=== PATIENT | male | born 1960 ===

== ENCOUNTER 2017-09-13 09:34 | Inpatient (IN) | payer MEDICARE, OTHER ==
[2017-09-13 09:34] VITALS: BMI 27.3
[2017-09-13 10:10] LABS: URINE BILIRUBIN NEGATIVE (NEGATIVE); URINE BLOOD 1+ (NEGATIVE); URINE CLARITY Clear (Clear); URINE COLOR Yellow (YELLOW); URINE GLUCOSE (UA) NORMAL (Normal); URINE LEUKOCYTE ESTERASE NEG Leu/uL (Negative); URINE NITRATE NEGATIVE (NEGATIVE); URINE PROTEIN NEGATIVE (NEGATIVE); URINE UROBILINOGEN NORMAL mg/dL (0.2-1.0)
--- NOTE | 2017-09-13 10:10 | C.PDOC ---
History Of Present Illness 57-year-old male, brought in by EMS stating he is suicidal. He has a plan to shoot himself, and is hearing voices that are telling him to kill himself. All other Hx is limited due to clinical condition. Time Seen by Provider: 09/13/17 09:40 Chief Complaint (Nursing): Psychiatric Evaluation History Per: Patient History/Exam Limitations: clinical condition Past Medical History Reviewed: Historical Data, Nursing Documentation, Vital Signs Vital Signs: Last Vital Signs Temp 98.4 F 09/13/17 16:23 Pulse 102 H 09/13/17 16:23 Resp 20 09/13/17 16:23 BP 117/56 L 09/13/17 16:23 Pulse Ox 94 L 09/13/17 16:23 - Medical History PMH: Anxiety, Depression, Seizures Surgical History: Appendectomy, Cholecystectomy - [facility] Procedures ALCOHOL DETOXIFICATION (01/11/15) GROUP PSYCHOTHERAPY (07/12/15) INDIVID PSYCHOTHERAP NEC (03/05/15) INDIVIDUAL PSYCHOTHERAPY, BEHAVIORAL (07/12/15) OTHER GROUP THERAPY (03/05/15) PSYCHIAT DRUG THERAP NEC (03/05/15) SUPPOR VERBAL PSYCHOTHER (01/11/15) Family History: States: No Known Family Hx - Social History Hx Tobacco Use: No Hx Alcohol Use: Yes Hx Substance Use: No - Immunization History Hx Tetanus Toxoid Vaccination: No Hx Influenza Vaccination: No Hx Pneumococcal Vaccination: No Review Of Systems Constitutional: Negative for: Fever Respiratory: Negative for: Shortness of Breath Psych: Positive for: Depression, Suicidal ideation, Other (auditory hallucinations) Physical Exam - Physical Exam Appears: Non-toxic, No Acute Distress, Other (Screaming and crying actively in ER.) Skin: Warm, Dry, No Rash Head: Atraumatic, Normacephalic Eye(s): bilateral: Normal Inspection, PERRL, EOMI Oral Mucosa: Moist Neck: Normal ROM, Supple Chest: Symmetrical, No Tenderness Cardiovascular: Rhythm Regular, No Friction Rub, No Murmur Respiratory: No Accessory Muscle Use Gastrointestinal/Abdominal: Normal Exam, Soft, No Tenderness Back: Normal Inspection, No CVA Tenderness Extremity: Normal ROM Neurological/Psych: Oriented x3, Normal Speech, Normal Motor Gait: Steady ED Course And Treatment - Laboratory Results Result Diagrams: 09/13/17 10:36 09/13/17 10:36 O2 Sat by Pulse Oximetry: 99 (on RA) Pulse Ox Interpretation: Normal Medical Decision Making Medical Decision Making: The patient was observed for sobreity. Patient was evaluated by the crisis team and case was discussed with psychiatrist . Patient is to be admitted to psych. Disposition - Disposition Disposition: HOSPITALIZED Disposition Time: 17:30 Condition: FAIR - POA Present On Arrival: None - Clinical Impression Clinical Impression: Major depression - Scribe Statement The provider has reviewed the documentation as recorded by the Scribe (Rossy Mendez) All medical record entries made by the Scribe were at my direction and personally dictated by me. I have reviewed the chart and agree that the record accurately reflects my personal performance of the history, physical exam, medical decision making, and the department course for this patient. I have also personally directed, reviewed, and agree with the discharge instructions and disposition.
[2017-09-13 10:18] LABS: BARBITURATES, UR NEGATIVE (NEGATIVE); BENZODIAZEPINES, UR NEGATIVE (NEGATIVE); OPIATES, UR NEGATIVE (NEGATIVE); PHENCYCLIDINE, UR NEGATIVE (NEGATIVE)
[2017-09-13 10:43] LABS: BASO # 0.1 K/uL (0.0-0.2); EOS # 0.1 K/uL (0.0-0.7); EOS % 2.4 % (0.0-4.0); LYMPH # 2.6 K/uL (1.0-4.3); LYMPH % 43.5 % (20.0-40.0); MEAN CELL VOLUME 93.5 fL (80.0-94.0); MEAN CORPUSCULAR HEMOGLOBIN 32.8 pg (27.0-31.0); MEAN CORPUSCULAR HGB CONC 35.1 g/dL (33.0-37.0); MEAN PLATELET VOLUME 9.2 fL (7.2-11.7); MONO # 0.6 K/uL (0.0-0.8); MONO % 10.2 % (0.0-10.0); NEUT # 2.6 K/uL (1.8-7.0); NEUT % 42.9 % (50.0-75.0); NRBC % 0.1 % (0.0-2.0); RBC 4.57 Mil/uL (4.40-5.90); RED CELL DISTRIBUTION WIDTH 13.6 % (11.5-14.5); WHITE BLOOD COUNT 6.1 K/uL (4.8-10.8)
[2017-09-13 11:15] LABS: ALB/GLOB RATIO 1.3 (1.0-2.1); ALBUMIN 4.3 g/dL (3.5-5.0); ALT/SGPT 22 U/L (21-72); AST/SGOT 24 U/L (17-59); BLOOD UREA NITROGEN 18 mg/dL (9-20); CALCIUM 8.1 mg/dl (8.6-10.4); GFR AFRICAN-AMERICAN > 60; GFR NON-AFRICAN AMERICAN > 60
--- NOTE | 2017-09-13 17:45 | PCM.BM ---
<Kristin Galeas - Last Filed: 09/13/17 17:44> Treatment Plan Problems - Problems identified on initial assessmt Depression Date Initiated: 09/13/17 Time Initiated: 17:44 Assessment reference: NA Status: Active Comment: hx of ETOH abuse Treatment assets and liabiliti Patient Assests: cooperative, negotiates basic needs Patient Liabilities: substance abuse - Milieu Protocol Maintain good personal hygiene: daily Encourage regular showers, daily Remind patient to perform daily oral care Conduct patient checks and document Observation sheet: Q15 minutes Maintain personal safety: every shift Educate patient to report safety concerns to staff, every shift Monitor environment for contraband/sharps Medication safety: Monitor for expected outcome, potential side effects: every shift, Assess barriers to learning: every shift, Assess readiness for medication education: every shift <Chris Yarbrough - Last Filed: 09/16/17 20:10> - Diagnosis (1) Bipolar disorder, now depressed Status: Acute Interventions: 09/16/17 20:10 * Assess/adjust medications daily and /or as needed * See patient on an individual basis 7x/week to assess level of manic behaviors and stability * Discuss risks, benefits, side effects and alternatives of medications * * Assess/adjust medications daily and /or as needed * See patient on an individual basis 7x/week to assess symptoms of depression * Monitor for side effects & effectiveness of medications * (2) Alcohol use disorder, severe, dependence Status: Acute Interventions: 09/16/17 20:09 * Assess 7x/week regarding severity of withdrawal * Educate regarding risks, benefits, side effects and alternatives of medications * Use Motivational Interviewing for abstinence * Use CBT for relapse prevention * Medication management for withdrawal symptoms * Encourage medication assisted treatment *
[2017-09-14] MEDS: Multiple Vitamins Tab PO SCH (10:19)
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
[2017-09-15] MEDS: Multiple Vitamins Tab PO SCH (09:49)
[2017-09-15 09:58] LABS: CALCIUM 8.8 mg/dl (8.6-10.4); MAGNESIUM 1.8 mg/dL (1.6-2.3)
[2017-09-15] MEDS ORDERED: Ergocalciferol 50,000 Intl Units Cap PO SCH (15:15)
--- NOTE | 2017-09-15 15:15 | PCM.PYCHPN ---
Psychiatric Progress Note - Psychiatric Progress Note Patient seen today, length of contact: 17 min Patient Chief Complaint: "Better" Problems Identified/Issues Discussed: The pt is seen, chart reviewed, case discussed with staff. The pt is compliant with medications and reports no side-effects. Symptoms are improving but needs more time to stabilize. After care discussed, support and psychoeducation given. Medication Change: Yes Medical Record Reviewed: Yes Mental Status Examination - Cognitive Function Orientation: Person, Place, Situation, Time Memory: Intact Attention: Poor Concentration: Poor Association: Loose Fund of Knowledge: Poor - Mood Mood: Depressed, Anxious - Affect Affect: Constricted (odd) - Speech Speech: Appropriate - Formal Thought Process Formal Thought Process: No Impairment - Suicidal Ideation Suicidal Ideation: No - Homicidal Ideation Homicidal Ideation: No Goal/Treatment Plan - Goal/Treatment Plan Need for Continued Stay: Discharge may exacerbated symptoms, Severe functional impairment Progress Toward Problem(s) and Goals/Treatment Plan: Lexapro for depression Zyprexa for bipolar hx DC depakote (has alcohol depend.) Librium detox As needed medications Gabapentin for augmentation Attend groups and activities Supportive therapy and psychoeducation [place] for abstinence CBT for relapse prevention Encourage MAT Refer to rehab or IOP Attend self-help groups as well Estimated Date of D/C: 09/20/17
[2017-09-16] MEDS: Aluminum Hydroxide/Magnesium Hydroxide Susp (30 mL) PO PRN ×3 (03:21→21:21)
[2017-09-16] MEDS: Multiple Vitamins Tab PO SCH (09:54)
[2017-09-16] MEDS: Pantoprazole 20 mg EC Tab PO SCH (11:31)
--- NOTE | 2017-09-16 20:05 | PCM.PYCHPN ---
Psychiatric Progress Note - Psychiatric Progress Note Patient seen today, length of contact: 16 min Patient Chief Complaint: "I have stomach pain" Problems Identified/Issues Discussed: The pt is seen, chart reviewed, case discussed with staff. He is improving slowly but still sexually preoccupied, odd, labile and at times isolated. No SEs from meds Support and psychoed given Medical problems are vague and mild Medication Change: Yes (increase zyprexa) Medical Record Reviewed: Yes Mental Status Examination - Cognitive Function Orientation: Person, Place, Situation, Time Memory: Intact Attention: Poor Concentration: Poor Association: Loose Fund of Knowledge: Poor - Mood Mood: Depressed, Anxious - Affect Affect: Constricted (odd) - Speech Speech: Appropriate - Formal Thought Process Formal Thought Process: No Impairment - Suicidal Ideation Suicidal Ideation: No - Homicidal Ideation Homicidal Ideation: No Goal/Treatment Plan - Goal/Treatment Plan Need for Continued Stay: Discharge may exacerbated symptoms, Severe functional impairment Progress Toward Problem(s) and Goals/Treatment Plan: Lexapro for depression Zyprexa for bipolar hx DC'ed depakote (has alcohol depend.) Librium detox ending As needed medications Gabapentin for augmentation Attend groups and activities Supportive therapy and psychoeducation [place] for abstinence CBT for relapse prevention Encourage MAT Refer to rehab or IOP Attend self-help groups as well Estimated Date of D/C: 09/20/17
[2017-09-17] MEDS: Multiple Vitamins Tab PO SCH (10:10)
[2017-09-17] MEDS: Pantoprazole 20 mg EC Tab PO SCH (10:46)
--- NOTE | 2017-09-17 14:24 | PCM.PYCHPN ---
Psychiatric Progress Note - Psychiatric Progress Note Patient seen today, length of contact: 16 min Patient Chief Complaint: "I have diarrhea." Problems Identified/Issues Discussed: The pt is seen, chart reviewed, case discussed with staff. He is improving slowly but still sexually preoccupied, odd, labile and at times isolated. Patient complains of having diarrhea. No SEs from meds Support and psychoed given Medical problems are vague and mild Medication Change: Yes (increase zyprexa) Medical Record Reviewed: Yes Mental Status Examination - Cognitive Function Orientation: Person, Place, Situation, Time Memory: Intact Attention: WNL Concentration: Poor Association: Loose Fund of Knowledge: Poor - Mood Mood: Depressed, Anxious - Affect Affect: Constricted (odd) - Speech Speech: Appropriate - Formal Thought Process Formal Thought Process: No Impairment - Suicidal Ideation Suicidal Ideation: No - Homicidal Ideation Homicidal Ideation: No Goal/Treatment Plan - Goal/Treatment Plan Need for Continued Stay: Discharge may exacerbated symptoms, Severe functional impairment Progress Toward Problem(s) and Goals/Treatment Plan: Lexapro for depression Zyprexa for bipolar hx DC'ed depakote (has alcohol dependence.) Librium detox ending As needed medications Gabapentin for augmentation Attend groups and activities Supportive therapy and psychoeducation [place] for abstinence CBT for relapse prevention Encourage MAT Refer to rehab or IOP Attend self-help groups as well Estimated Date of D/C: 09/20/17
[2017-09-18] MEDS: Multiple Vitamins Tab PO SCH (09:47)
[2017-09-18] MEDS: Pantoprazole 20 mg EC Tab PO SCH (09:47)
--- NOTE | 2017-09-18 18:59 | PCM.PYCHPN ---
Psychiatric Progress Note - Psychiatric Progress Note Patient seen today, length of contact: 16 min Patient Chief Complaint: "I'm feeling OKay" Problems Identified/Issues Discussed: Patient was seen. Chart was reviewed important content noted. Nurse input received. Patient has no new complaints. Pt reported improvement in his etoh withdrawal symptoms. No events overnight. Patient slept well and is eating well. Patient reported that he still had depressive symptoms. However, he denies suicidal or homicidal ideations. Patient reports improvement in hallucinations. No delusions elicited. No paranoia elicited. Patient has remained in good clinical and behavioral control. Symptoms are improving, but needs more time to stabilize. Patient is finding medications beneficial and would like to continue with treatment plan. Patient appreciated that treatment team is trying to help. Medication Change: No Medical Record Reviewed: Yes Mental Status Examination - Cognitive Function Orientation: Person, Place, Situation, Time Memory: Intact Attention: WNL Concentration: WNL Association: WNL Fund of Knowledge: [facility] Decription of patient's judgement and insights: Fair/Fair Addtional comments: Calm and Cooperative - Mood Mood: Depressed, Anxious - Affect Affect: Constricted (odd) - Speech Speech: Appropriate - Formal Thought Process Formal Thought Process: No Impairment Psychotic Thoughts and Behaviors: Denied - Suicidal Ideation Suicidal Ideation: No Plan: denied - Homicidal Ideation Homicidal Ideation: No Plan: denied Goal/Treatment Plan - Goal/Treatment Plan Need for Continued Stay: Discharge may exacerbated symptoms, Severe functional impairment Progress Toward Problem(s) and Goals/Treatment Plan: Continue Lexapro for depression Zyprexa for bipolar hx DC'ed depakote (has alcohol dependence.) Librium detox ending As needed medications Gabapentin for augmentation Attend groups and activities Supportive therapy and psychoeducation [place] for abstinence CBT for relapse prevention Encourage MAT Refer to rehab or IOP Attend self-help groups as well Estimated Date of D/C: 09/20/17 - Smoking Cessation Smoking Cessation Initiated: Yes
[2017-09-19 05:51] VITALS: O2SAT 100
[2017-09-19] MEDS: Pantoprazole 20 mg EC Tab PO SCH (09:07)
[2017-09-19] MEDS: Multiple Vitamins Tab PO SCH (09:07)
--- NOTE | 2017-09-19 17:01 | PCM.PYCHPN ---
Psychiatric Progress Note - Psychiatric Progress Note Patient seen today, length of contact: 16 min Patient Chief Complaint: "I'm feeling better" Problems Identified/Issues Discussed: Patient was seen. Chart was reviewed important content noted. Nurse input received. Patient has no new complaints. Pt reported improvement in his etoh withdrawal symptoms. No events overnight. Patient slept well and is eating well. Patient reported that he still had depressive symptoms. However, he denies suicidal or homicidal ideations. Patient reports improvement in hallucinations. No delusions elicited. No paranoia elicited. Patient has remained in good clinical and behavioral control. Symptoms are improving, but needs more time to stabilize. Patient is finding medications beneficial and would like to continue with treatment plan. Patient appreciated that treatment team is trying to help. Medication Change: No Medical Record Reviewed: Yes Mental Status Examination - Cognitive Function Orientation: Person, Place, Situation, Time Memory: Intact Attention: WNL Concentration: WNL Association: WNL Fund of Knowledge: [facility] Decription of patient's judgement and insights: Fair/Fair - Mood Mood: Depressed, Anxious - Affect Affect: Constricted (odd) - Speech Speech: Appropriate - Formal Thought Process Formal Thought Process: No Impairment Psychotic Thoughts and Behaviors: Denied - Suicidal Ideation Suicidal Ideation: No Plan: denied - Homicidal Ideation Homicidal Ideation: No Plan: denied Goal/Treatment Plan - Goal/Treatment Plan Need for Continued Stay: Discharge may exacerbated symptoms, Severe functional impairment Progress Toward Problem(s) and Goals/Treatment Plan: Continue Lexapro for depression Zyprexa for bipolar hx DC'ed depakote (has alcohol dependence.) Librium detox ending As needed medications Gabapentin for augmentation Attend groups and activities Supportive therapy and psychoeducation [place] for abstinence CBT for relapse prevention Encourage MAT Refer to rehab or IOP Attend self-help groups as well Estimated Date of D/C: 09/20/17 - Smoking Cessation Smoking Cessation Initiated: Yes
[2017-09-20 09:00] VITALS: BP 123/88; PULSE 88; RESP 16; TEMP 97.9
[2017-09-20] MEDS: Multiple Vitamins Tab PO SCH (10:02)
[2017-09-20] MEDS: Pantoprazole 20 mg EC Tab PO SCH (10:02)
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
== END 2017-09-20 11:56 | disposition home or self-care (01) | DRG 895 ==
LOC: C.ER 09:34 → C.5E 17:01
PROVIDERS: ADMIT Psychiatry & Neurology Psychiatry; ATTEND Psychiatry & Neurology Psychiatry
PROC: HZ2ZZZZ Detoxification Services for Substance Abuse Treatment (ICD-10-PCS; principal; 2017-09-13)
PROC: HZ52ZZZ Individual Psychotherapy for Substance Abuse Treatment, Cognitive-Behavioral (ICD-10-PCS; 2017-09-13)
PROC: HZ59ZZZ Individual Psychotherapy for Substance Abuse Treatment, Supportive (ICD-10-PCS; 2017-09-13)
PROC: HZ56ZZZ Individual Psychotherapy for Substance Abuse Treatment, Psychoeducation (ICD-10-PCS; 2017-09-13)
DX: F10.239 Alcohol dependence with withdrawal, unspecified (principal); F31.81 Bipolar II disorder; F03.90 Unspecified dementia, unspecified severity, without behavioral disturbance, psychotic disturbance, mood disturbance, and anxiety; F60.9 Personality disorder, unspecified; F43.10 Post-traumatic stress disorder, unspecified; F41.0 Panic disorder [episodic paroxysmal anxiety]; G40.909 Epilepsy, unspecified, not intractable, without status epilepticus

== ENCOUNTER 2018-10-15 12:12 | Inpatient (IN) | payer OTHER ==
[2018-10-15 12:13] VITALS: BMI 32.8
[2018-10-15] MEDS ORDERED: Nitroglycerin 2% Ointment Foilpak UD TOP STA (12:24)
[2018-10-15] MEDS ORDERED: Aspirin 325 mg EC Tablets PO STA (12:24)
--- NOTE | 2018-10-15 12:26 | C.PDOC ---
History Of Present Illness 58 y/o male pt with hx of HTN, epilepsy and schizophrenia presents to the ER c/o chest pain x1 day. Associated sx includes cough for a couple of days. Pt reports he was bring his groceries up yesterday at 9 am when he developed an onset of mid-sternal chest pain and pressure. Pt denies fever, chills, SOB and palpitations. Time Seen by Provider: 10/15/18 12:15 Chief Complaint (Nursing): Chest Pain History Per: Patient History/Exam Limitations: no limitations Onset/Duration Of Symptoms: Days (x1) Current Symptoms Are (Timing): Still Present Past Medical History Reviewed: Historical Data, Nursing Documentation, Vital Signs Vital Signs: Last Vital Signs Temp 98.0 F 10/15/18 12:18 Pulse 86 10/15/18 12:18 Resp 20 10/15/18 12:18 BP 171/112 H 10/15/18 12:18 Pulse Ox 100 10/15/18 12:18 - Medical History PMH: Anxiety, Depression, HTN, Schizophrenia, Seizures Surgical History: Appendectomy, Cholecystectomy - [facility] Procedures ALCOHOL DETOXIFICATION (01/11/15) DETOXIFICATION SERVICES FOR SUBSTANCE ABUSE TREATMENT (09/13/17) DRAINAGE OF LEFT LOWER LEG SKIN, EXTERNAL APPROACH (05/26/18) GROUP PSYCHOTHERAPY (07/12/15) INDIV PSYCHOTHERAPY FOR SUBSTANCE ABUSE TREATMENT, SUPPORT (09/13/17) INDIV PSYCHOTHERAPY FOR SUBSTANCE ABUSE, COGNITIV BEHAVIORAL (09/13/17) INDIV PSYCHOTHERAPY FOR SUBSTANCE ABUSE, PSYCHOEDUCATION (09/13/17) INDIVID PSYCHOTHERAP NEC (03/05/15) INDIVIDUAL PSYCHOTHERAPY, BEHAVIORAL (07/12/15) OTHER GROUP THERAPY (03/05/15) PSYCHIAT DRUG THERAP NEC (03/05/15) SUPPOR VERBAL PSYCHOTHER (01/11/15) Family History: States: No Known Family Hx - Social History Hx Tobacco Use: No Hx Alcohol Use: Yes Hx Substance Use: No - Immunization History Hx Tetanus Toxoid Vaccination: No Hx Influenza Vaccination: No Hx Pneumococcal Vaccination: No Review Of Systems Except As Marked, All Systems Reviewed And Found Negative. Constitutional: Negative for: Fever, Chills Cardiovascular: Positive for: Chest Pain. Negative for: Palpitations Respiratory: Positive for: Cough. Negative for: Shortness of Breath Physical Exam - Physical Exam Appears: Non-toxic, No Acute Distress Skin: Warm, Dry Head: Normacephalic Eye(s): bilateral: Normal Inspection, EOMI Ear(s): Bilateral: Normal Nose: Normal Oral Mucosa: Moist Neck: Normal ROM, Supple Chest: Symmetrical, No Deformity, No Tenderness Cardiovascular: Rhythm Regular Respiratory: Normal Breath Sounds, No Rales, No Rhonchi, No Wheezing Gastrointestinal/Abdominal: Soft, No Tenderness Back: No CVA Tenderness Neurological/Psych: Oriented x3, Normal Speech ED Course And Treatment - Laboratory Results Result Diagrams: 10/15/18 12:30 10/15/18 12:30 ECG: Interpreted By Me, Viewed By Me ECG Rhythm: Sinus Rhythm (arrhythmia) Interpretation Of ECG: LVH with ST elevation in V2; no reciprocal changes Rate From EC O2 Sat by Pulse Oximetry: 100 (RA) Pulse Ox Interpretation: Normal - Radiology CXR: Interpreted by Me, Viewed By Me CXR Interpretation: Yes: Cardiomegaly (borderline ). No: Infiltrates, Pnemothorax Medical Decision Making Medical Decision Making: Plans: -- EKG -- Chem labs -- blood works -- CXR -- aspirin -- nitro-bid Progress/Update: 1:51pm : Spoke with Dr. Osei who agreed to admit the patient. Consult for Dr. Arriola Disposition Discussed With : Bhumi Osei Doctor Will See Patient In The: Hospital Counseled Patient/Family Regarding: Studies Performed, Diagnosis - Disposition Disposition: HOSPITALIZED Disposition Time: 14:03 Condition: STABLE - Clinical Impression Clinical Impression: Chest pain, Hypotension - Scribe Statement The provider has reviewed the documentation as recorded by the Nithya Henderson Do Provider Attestation: All medical record entries made by the Briandaibe were at my direction and personally dictated by me. I have reviewed the chart and agree that the record accurately reflects my personal performance of the history, physical exam, medical decision making, and the department course for this patient. I have also personally directed, reviewed, and agree with the discharge instructions and disposition.
[2018-10-15 12:34] LABS: BASO # 0.1 K/uL (0.0-0.2); BASO % 1.2 % (0.0-2.0); EOS # 0.2 K/uL (0.0-0.7); EOS % 2.6 % (0.0-4.0); HEMOGLOBIN 15.8 g/dL (12.0-18.0); LYMPH # 1.8 K/uL (1.0-4.3); LYMPH % 28.4 % (20.0-40.0); MEAN CELL VOLUME 92.8 fL (80.0-94.0); MEAN CORPUSCULAR HEMOGLOBIN 32.1 pg (27.0-31.0); MEAN CORPUSCULAR HGB CONC 34.5 g/dL (33.0-37.0); MEAN PLATELET VOLUME 9.7 fL (7.2-11.7); MONO # 0.6 K/uL (0.0-0.8); MONO % 9.3 % (0.0-10.0); NEUT # 3.7 K/uL (1.8-7.0); NEUT % 58.5 % (50.0-75.0); NRBC % 0.1 % (0.0-2.0); RBC 4.94 Mil/uL (4.40-5.90); RED CELL DISTRIBUTION WIDTH 13.6 % (11.5-14.5); WHITE BLOOD COUNT 6.3 K/uL (4.8-10.8)
[2018-10-15] MEDS ORDERED: Nitroglycerin 2% Ointment Foilpak UD TOP ONE (12:40)
[2018-10-15] MEDS ORDERED: Aspirin 325 mg EC Tablets PO ONE (12:40)
[2018-10-15 12:48] LABS: PROTHROMBIN TIME 10.5 SECONDS (9.7-12.2)
[2018-10-15 13:05] LABS: ALB/GLOB RATIO 1.5 (1.0-2.1); ALBUMIN 4.7 g/dL (3.5-5.0); ALT/SGPT 26 U/L (21-72); AST/SGOT 33 U/L (17-59); BLOOD UREA NITROGEN 18 mg/dL (9-20); CALCIUM 9.2 mg/dl (8.6-10.4); GFR NON-AFRICAN AMERICAN > 60
[2018-10-15 13:17] LABS: B-TYPE NATRIURETIC PEPTIDE 34.1 pg/mL (0-900)
[2018-10-15 13:40] LABS: BARBITURATES, UR NEGATIVE (NEGATIVE); BENZODIAZEPINES, UR NEGATIVE (NEGATIVE); OPIATES, UR NEGATIVE (NEGATIVE); PHENCYCLIDINE, UR NEGATIVE (NEGATIVE)
--- NOTE | 2018-10-15 13:54 | RAD ---
Date of service: 10/15/2018 HISTORY: chest pain COMPARISON: Portable chest 01/11/2015. FINDINGS: LUNGS: No active pulmonary disease. PLEURA: No significant pleural effusion identified, no pneumothorax apparent. CARDIOVASCULAR: No aortic atherosclerotic calcification present. Mild cardiomegaly no pulmonary vascular congestion. OSSEOUS STRUCTURES: No significant abnormalities. VISUALIZED UPPER ABDOMEN: Normal. OTHER FINDINGS: None. IMPRESSION: Stable mild cardiomegaly. No airspace disease bilaterally, pleural effusion or pneumothorax.
[2018-10-15 18:26] VITALS: RESP 20
[2018-10-15] MEDS: Enoxaparin 40 mg Syringe SC SCH (19:01)
[2018-10-15 20:05] LABS: CK-MB 1.87 ng/mL (0.0-3.38)
[2018-10-15] MEDS: Divalproex 125 mg Sprinkle Capsule PO SCH (21:28)
[2018-10-16 07:09] LABS: CK-MB 1.25 ng/mL (0.0-3.38)
[2018-10-16] MEDS: Enoxaparin 40 mg Syringe SC SCH (09:26)
--- NOTE | 2018-10-16 21:26 | CP.PCM.CON ---
History of Present Illness - History of Present Illness History of Present Illness: CC: Chest Pain 58 y/o male pt with hx of HTN, epilepsy and schizophrenia presents to the ER c/o chest pain x1 day. Associated sx includes cough for a couple of days. Pt reports he was bring his groceries up yesterday at 9 am when he developed an onset of mid-sternal chest pain and pressure. Pt denies fever, chills, SOB and palpitati ons. Chief Complaint (Nursing): Chest Pain History Per: Patient History/Exam Limitations: no limitations Onset/Duration Of Symptoms: Days (x1) Current Symptoms Are (Timing): Still Present Past Medical History Reviewed: Historical Data, Nursing Documentation, Vital Signs Vital Signs: Last Vital Signs Temp 98.0 F 10/15/18 12:18 Pulse 86 10/15/18 12:18 Resp 20 10/15/18 12:18 BP 171/112 H 10/15/18 12:18 Pulse Ox 100 10/15/18 12:18 - Medical History PMH: Anxiety, Depression, HTN, Schizophrenia, Seizures Surgical History: Appendectomy, Cholecystectomy - [facility] Procedures ALCOHOL DETOXIFICATION (01/11/15) DETOXIFICATION SERVICES FOR SUBSTANCE ABUSE TREATMENT (09/13/17) DRAINAGE OF LEFT LOWER LEG SKIN, EXTERNAL APPROACH (05/26/18) GROUP PSYCHOTHERAPY (07/12/15) INDIV PSYCHOTHERAPY FOR SUBSTANCE ABUSE TREATMENT, SUPPORT (09/13/17) INDIV PSYCHOTHERAPY FOR SUBSTANCE ABUSE, COGNITIV BEHAVIORAL (09/13/17) INDIV PSYCHOTHERAPY FOR SUBSTANCE ABUSE, PSYCHOEDUCATION (09/13/17) INDIVID PSYCHOTHERAP NEC (03/05/15) INDIVIDUAL PSYCHOTHERAPY, BEHAVIORAL (07/12/15) OTHER GROUP THERAPY (03/05/15) PSYCHIAT DRUG THERAP NEC (03/05/15) SUPPOR VERBAL PSYCHOTHER (01/11/15) Family History: States: No Known Family Hx - Social History Hx Tobacco Use: No Hx Alcohol Use: Yes Hx Substance Use: No - Immunization History Hx Tetanus Toxoid Vaccination: No Hx Influenza Vaccination: No Hx Pneumococcal Vaccination: No Review Of Systems Except As Marked, All Systems Reviewed And Found Negative. Constitutional: Negative for: Fever, Chills Cardiovascular: Positive for: Chest Pain. Negative for: Palpitations Respiratory: Positive for: Cough. Negative for: Shortness of Breath Physical Exam - Physical Exam Appears: Non-toxic, No Acute Distress Skin: Warm, Dry Head: Normacephalic Eye(s): bilateral: Normal Inspection, EOMI Ear(s): Bilateral: Normal Nose: Normal Oral Mucosa: Moist Neck: Normal ROM, Supple Chest: Symmetrical, No Deformity, No Tenderness Cardiovascular: Rhythm Regular Respiratory: Normal Breath Sounds, No Rales, No Rhonchi, No Wheezing Gastrointestinal/Abdominal: Soft, No Tenderness Back: No CVA Tenderness Neurological/Psych: Oriented x3, Normal Speech Past Patient History - Past Medical History & Family History Past Medical History?: Yes - Past Social History Smoking Status: Former Smoker - CARDIAC Hx Hypertension: Yes - PULMONARY Hx Tuberculosis: No - NEUROLOGICAL Hx Seizures: Yes - HEENT Hx HEENT Problems: No - RENAL Hx Chronic Kidney Disease: No - ENDOCRINE/METABOLIC Hx Endocrine Disorders: Yes - HEMATOLOGICAL/ONCOLOGICAL Hx Blood Disorders: No Hx Cancer: No - INTEGUMENTARY Hx Dermatological Problems: No - MUSCULOSKELETAL/RHEUMATOLOGICAL Hx Musculoskeletal Disorders: No Hx Falls: No - GASTROINTESTINAL Hx Gastrointestinal Disorders: No - GENITOURINARY/GYNECOLOGICAL Hx Genitourinary Disorders: No - PSYCHIATRIC Hx Anxiety: Yes Hx Depression: Yes Hx Schizophrenia: Yes Hx Substance Use: No - SURGICAL HISTORY Hx Appendectomy: Yes Hx Cholecystectomy: Yes - ANESTHESIA Hx Anesthesia: Yes Hx Anesthesia Reactions: No Hx Malignant Hyperthermia: No Meds Allergies/Adverse Reactions: Allergies Allergy/AdvReac Type Severity Reaction Status Date / Time paroxetine HCl [From Paxil] Allergy dyskinesia Verified 10/15/18 12:23 like phenytoin sodium Allergy SWELLING Verified 10/15/18 12:23 [From Dilantin] phenytoin sodium extended Allergy SWELLING Verified 10/15/18 12:23 [From Dilantin] haloperidol [From Haldol] AdvReac SWELLING Verified 10/15/18 12:23 - Medications Medications: Current Medications Divalproex Sodium (Depakote Sprinkles) 125 mg PO HS [facility] Last Admin: 10/15/18 21:28 Dose: 125 mg Enoxaparin Sodium (Lovenox) 40 mg SC DAILY [facility] Last Admin: 10/16/18 09:26 Dose: 40 mg Escitalopram Oxalate (Lexapro) 10 mg PO DAILY [facility] Last Admin: 10/16/18 09:26 Dose: 10 mg Levetiracetam (Keppra) 1,000 mg PO BID [facility] Last Admin: 10/16/18 18:17 Dose: 1,000 mg Olanzapine (Zyprexa) 5 mg PO HS [facility] Last Admin: 10/15/18 21:27 Dose: 5 mg Zolpidem Tartrate (Ambien) 5 mg PO HS PRN PRN Reason: Insomnia Last Admin: 10/16/18 00:13 Dose: 5 mg Results - Vital Signs Recent Vital Signs: Last Vital Signs Temp 97.9 F 10/16/18 16:00 Pulse 73 10/16/18 18:00 Resp 20 10/16/18 16:00 BP 110/68 10/16/18 16:00 Pulse Ox 95 10/16/18 16:00 - Labs Result Diagrams: 10/15/18 12:30 10/15/18 12:30 Labs: Laboratory Results - last 24 hr 10/16/18 10/16/18 10/16/18 06:42 06:42 12:17 POC Glucose (mg/dL) 94 Total Creatine Kinase 131 CK-MB (Mass) 1.25 Troponin I < 0.0120 Valproic Acid 10.6 L Assessment & Plan - Assessment and Plan (Free Text) Assessment: Chest Pain Stress test and ECHO in am
[2018-10-16] MEDS: Divalproex 125 mg Sprinkle Capsule PO SCH (21:53)
--- NOTE | 2018-10-17 05:53 | HP ---
The patient seen and examined on the bedside on 10/16/2018. CHIEF COMPLAINT: Chest pain. HISTORY OF PRESENT ILLNESS: Mr. Gasper Gonzalez is a 58-year-old male with past medical history of hypertension, epilepsy, schizophrenia, came to the emergency department complaining of chest pain one day associated with cough for a couple of days. The patient reports that he was brining his groceries when he developed an onset of midsternal chest pain and pressure. Denies fever or chills. No palpitation. No hematuria. No hematochezia. According to him, his seizures and schizophrenia are stable. PAST MEDICAL HISTORY: Anxiety, depression, hypertension, schizophrenia, and seizures. PAST SURGICAL HISTORY: Appendectomy, cholecystectomy. FAMILY HISTORY: Father and mother are noncontributory. HABITS: No smoking. Alcohol, yes. No substance abuse. REVIEW OF SYSTEMS: The patient was seen and examined at the bedside in his room. Looking comfortable. Still complaining about chest pain. No hematuria or hematochezia. No headache or dizziness. No coughing. No shortness of breath that moment. PHYSICAL EXAMINATION VITAL SIGNS: Temperature 98, pulse 86, respiratory rate 20, blood pressure 170/112, pulse oximetry 100%. Repeat blood pressure is 110/58. HEENT: Head normocephalic, atraumatic. Eyes PERRLA. Extraocular muscles intact. Conjunctivae clear. Nose patent. Mucous membranes are moist. NECK: Supple. No carotid bruit, JVD, or thyromegaly. CHEST: Bilaterally symmetrical. HEART: S1, S2 positive. LUNGS: Clear to auscultation. ABDOMEN: Soft. Bowel sounds present. No organomegaly. EXTREMITIES: No edema. No cyanosis. NEUROLOGIC: The patient is awake, alert. Follows simple commands. LABORATORY DATA: White blood cell 6.3, hemoglobin 15.8, hematocrit 45.9, platelets 235. Sodium 137, potassium 4, BUN 8, creatinine 0.9, glucose 77. Troponin x3 less than 0.0120. ASSESSMENT AND PLAN: Mr. Gasper Gonzalez is a 58-year-old male came with chest pain, has history of anxiety, depression, hypertension, schizophrenia, seizures, appendectomy, cholecystectomy but according to him, when he was getting grocery he had midsternal chest pain with pressure. We admitted the patient. Consult with sanitation director with Dr. Ghanshyam Arriola. According to Dr. Arriola, stress test and echocardiogram in a.m. Repeat labs, out of bed physical therapy. Gastrointestinal, deep venous thrombosis prophylaxis. According to the patient, he has insomnia, wants Ambien. He was taking Ambien at home. We will give that. Continue home medications and Depakote, Keppra, Lexapro. Lovenox for deep venous thrombosis prophylaxis given. The patient is getting his Zyprexa also. We will call Psychology consult. Repeat labs. We will follow up. Bhumi Osei MD
[2018-10-17] MEDS ORDERED: Caffeine Citrated **INJ** 20 MG/ML IV ONE (08:13)
--- NOTE | 2018-10-17 09:21 | CARD ---
APPROVED REPORT Date of service: 10/15/2018 EKG Measurement Heart [id number] <Conclusion> Normal sinus rhythm with sinus arrhythmia Moderate voltage criteria for LVH, may be normal variant Borderline ECG
[2018-10-17] MEDS: Enoxaparin 40 mg Syringe SC SCH (10:41)
[2018-10-17 11:28] LABS: BASO % 0.8 % (0.0-2.0); EOS # 0.1 K/uL (0.0-0.7); EOS % 1.8 % (0.0-4.0); LYMPH # 1.6 K/uL (1.0-4.3); LYMPH % 27.8 % (20.0-40.0); MEAN CELL VOLUME 92.8 fL (80.0-94.0); MEAN CORPUSCULAR HEMOGLOBIN 32.1 pg (27.0-31.0); MEAN CORPUSCULAR HGB CONC 34.6 g/dL (33.0-37.0); MEAN PLATELET VOLUME 9.5 fL (7.2-11.7); MONO # 0.6 K/uL (0.0-0.8); MONO % 9.4 % (0.0-10.0); NEUT # 3.6 K/uL (1.8-7.0); NEUT % 60.2 % (50.0-75.0); RBC 4.98 Mil/uL (4.40-5.90); RED CELL DISTRIBUTION WIDTH 13.9 % (11.5-14.5); WHITE BLOOD COUNT 5.9 K/uL (4.8-10.8)
[2018-10-17 11:56] LABS: ALB/GLOB RATIO 1.4 (1.0-2.1); ALBUMIN 4.2 g/dL (3.5-5.0); ALT/SGPT 19 U/L (21-72); AST/SGOT 24 U/L (17-59); BLOOD UREA NITROGEN 21 mg/dL (9-20); GFR NON-AFRICAN AMERICAN > 60
--- NOTE | 2018-10-17 13:30 | CP.PCM.PCO ---
Physician Communication Note - Physician Communication Note Physician Communication Note: see above
--- NOTE | 2018-10-17 18:20 | CP.PCM.PN ---
<Neha Cedeño - Last Filed: 10/17/18 18:15> Subjective - Date & Time of Evaluation Date of Evaluation: 10/17/18 Time of Evaluation: 08:00 - Subjective Subjective: Cardiology Progress Note for Dr. Arriola: Patient was seen and examined at bedside in the AM. Patient states his chest pain has improved significantly. He states when he arrived to the hospital it was over a 10/10 and not it is currently a 6/10. Patient currently denies SOB, palpitations, fever, chill, cough, nausea, vomiting, diarrhea, or constipation. Objective - Vital Signs/Intake and Output Vital Signs (last 24 hours): Temp Pulse Resp BP Pulse Ox 97.8 F 70 20 94/62 L 97 10/17/18 16:00 10/17/18 16:00 10/17/18 16:00 10/17/18 16:00 10/17/18 16:00 Intake and Output: 10/17/18 10/17/18 06:59 18:59 Intake Total 500 600 Balance 500 600 - Medications Medications: Current Medications Enoxaparin Sodium (Lovenox) 40 mg SC DAILY [facility] Last Admin: 10/17/18 10:41 Dose: 40 mg Escitalopram Oxalate (Lexapro) 10 mg PO DAILY [facility] Last Admin: 10/17/18 10:42 Dose: 10 mg Levetiracetam (Keppra) 1,000 mg PO BID [facility] Last Admin: 10/17/18 17:55 Dose: 1,000 mg Olanzapine (Zyprexa) 5 mg PO HS [facility] Last Admin: 10/16/18 21:53 Dose: 5 mg Zolpidem Tartrate (Ambien) 5 mg PO HS PRN PRN Reason: Insomnia Last Admin: 10/16/18 00:13 Dose: 5 mg - Labs Labs: 10/17/18 11:20 10/17/18 11:20 PT 10.5 SECONDS (9.7-12.2) 10/15/18 12:30 INR 1.0 10/15/18 12:30 APTT 30 SECONDS (21-34) 10/15/18 12:30 - Constitutional Appears: Well, Non-toxic, No Acute Distress - Head Exam Head Exam: ATRAUMATIC, NORMAL INSPECTION - Eye Exam Eye Exam: EOMI, Normal appearance - ENT Exam ENT Exam: Mucous Membranes Moist - Respiratory Exam Respiratory Exam: Clear to Ausculation Bilateral, NORMAL BREATHING PATTERN - Cardiovascular Exam Cardiovascular Exam: REGULAR RHYTHM, +S1, +S2 Additional comments: Tenderness to palpation of the chest - GI/Abdominal Exam GI & Abdominal Exam: Soft, Normal Bowel Sounds. absent: Tenderness - Extremities Exam Extremities Exam: Normal Inspection. absent: Pedal Edema, Tenderness - Neurological Exam Neurological Exam: Alert, Awake, Oriented x3 - Psychiatric Exam Psychiatric exam: Normal Affect - Skin Skin Exam: Normal Color Assessment and Plan - Assessment and Plan (Free Text) Assessment: Chest Pain - Most likely secondary to musculoskeletal - Trop negative x3 - ProBNP 34.1 - UDS: Negative - Stress Test: No stress induced ischemia. EF 72% No further cardiac workup at this time. Case discussed with Dr. Flako Cedeño PGY-2 <Ghanshyam Arriola - Last Filed: 10/17/18 23:29> Objective - Vital Signs/Intake and Output Vital Signs (last 24 hours): Temp Pulse Resp BP Pulse Ox 97.8 F 70 20 94/62 L 97 10/17/18 16:00 10/17/18 16:00 10/17/18 16:00 10/17/18 16:00 10/17/18 16:00 Intake and Output: 10/17/18 10/18/18 18:59 06:59 Intake Total 600 Balance 600 - Medications Medications: Current Medications Enoxaparin Sodium (Lovenox) 40 mg SC DAILY [facility] Last Admin: 10/17/18 10:41 Dose: 40 mg Escitalopram Oxalate (Lexapro) 10 mg PO DAILY [facility] Last Admin: 10/17/18 10:42 Dose: 10 mg Levetiracetam (Keppra) 1,000 mg PO BID [facility] Last Admin: 10/17/18 17:55 Dose: 1,000 mg Olanzapine (Zyprexa) 5 mg PO HS [facility] Last Admin: 10/17/18 21:57 Dose: 5 mg Zolpidem Tartrate (Ambien) 5 mg PO HS PRN PRN Reason: Insomnia Last Admin: 10/16/18 00:13 Dose: 5 mg - Labs Labs: 10/17/18 11:20 10/17/18 11:20 PT 10.5 SECONDS (9.7-12.2) 02/02/19 12:30 INR 1.0 10/15/18 12:30 APTT 30 SECONDS (21-34) 10/15/18 12:30 Assessment and Plan - Assessment and Plan (Free Text) Assessment: Patient seen and evaluated personally by me. Plan of cre d/w thr resident and as documented
--- NOTE | 2018-10-18 05:26 | PN ---
DATE: 10/17/2018 SUBJECTIVE: This is a 58-year-old male. The patient was seen and examined at the bedside on 10/17/2018, looking comfortable. No fever. No chills. No hematuria. No hematochezia. No headache. No dizziness,. No chest pain. No palpitation. No shortness of breath. PHYSICAL EXAMINATION: VITAL SIGNS: Temperature 97.8, pulse 70, respiratory rate 20, blood pressure 94/62. HEENT: Head: Normocephalic, atraumatic. Eyes: PERRLA. Extraocular muscles intact. Conjunctivae clear. Nose patent. NECK: Supple. No carotid bruit. No JVD or thyromegaly. CHEST: Bilaterally symmetrical. HEART: S1, S2 positive. LUNGS: Clear to auscultation. ABDOMEN: Soft. Bowel sounds present. No organomegaly. EXTREMITIES: No edema. No cyanosis. NEUROLOGIC: The patient is awake, alert. Follows simple commands. MEDICATIONS: Lovenox, Lexapro, Keppra, Zyprexa, Ambien. LABORATORY DATA: White blood cells 5.9, hemoglobin 15.6, hematocrit 46.2, platelet 226. Sodium 130, potassium 4.2, BUN 25, creatinine 0.4, glucose 93. ASSESSMENT AND PLAN: Gasper Gonzalez is a 58-year-old male who came with chest pain as 06/22. Seen by the product steward. According to him, this looks most likely as musculoskeletal. Troponin x3 negative. Pro-BNP 34.1. Urine drug screen negative. Stress test shows ejection fraction of 72%. According to product steward, no more cardiac workup. The patient was not seen by the psychiatrist. Psychiatry is going to work up as outpatient. The patient has history of anxiety, getting medication. Can be followed up as outpatient. History of depression, hypertension, schizophrenia, and seizure disorder, now is stable. Gastrointestinal and deep venous thrombosis prophylaxis. Repeat labs. Education done. We will follow up. Bhumi Osei MD
[2018-10-18 08:13] VITALS: BP 99/67; TEMP 97.9; O2SAT 95
[2018-10-18] MEDS: Enoxaparin 40 mg Syringe SC SCH (10:00)
[2018-10-18 11:41] VITALS: PULSE 69
== END 2018-10-18 13:56 | disposition home or self-care (01) | DRG 313 ==
LOC: C.ER 12:12 → C.9E 14:00 → C.6T 16:04 → OBSVTOIN 10-17 18:19
PROVIDERS: ADMIT Internal Medicine; ATTEND Internal Medicine
DX: R07.89 Other chest pain (principal); F20.9 Schizophrenia, unspecified; G40.909 Epilepsy, unspecified, not intractable, without status epilepticus; G47.00 Insomnia, unspecified; I10 Essential (primary) hypertension; Z87.891 Personal history of nicotine dependence